=== PATIENT | female | born 1945 | race Caucasian/White ===

== ENCOUNTER 2017-06-11 11:36 | Emergency (ER) | payer BC, OTHER ==
[~2017-06-11] VITALS: Ht 165.1 cm; Wt 58.5 kg
[2017-06-11 11:46] VITALS: BP_SYST 105
[2017-06-11 12:41] VITALS: BP_SYST 105
== END 2017-06-11 12:36 | disposition home or self-care (01) ==
LOC: SED 11:36
DX: R10.84 Generalized abdominal pain (principal); J45.909 Unspecified asthma, uncomplicated
CPT/HCPCS: 99283

== ENCOUNTER 2017-06-22 07:34 | Inpatient (IN) | payer OTHER, BC ==
[~2017-06-22] VITALS: Ht 165.1 cm; Wt 57.6 kg
[2017-06-22 07:34] VITALS: BP_SYST 144
[2017-06-22] MEDS ORDERED: NACL 0.9% 1,000 ML IV ONE (07:48)
[2017-06-22] MEDS ORDERED: IPRATROPIUM BROM 0.5 MG/2.5 ML VIAL.NEB (ATROVENT) INH ONE (07:55)
[2017-06-22] MEDS ORDERED: ALBUTEROL SULFATE 0.083% 2.5 MG/3 ML VIAL.NEB INH ONE (07:55)
[2017-06-22] MEDS ORDERED: ALBUTEROL SULFATE 0.083% 2.5 MG/3 ML VIAL.NEB IH ONE ×3 (08:00→09:30)
[2017-06-22] MEDS ORDERED: MAGNESIUM SULFATE 50 ML IV ONE (08:00)
[2017-06-22] MEDS ORDERED: methylPREDNISolone SOD SUCC/PF 62.5 MG/ML VIAL IVP ONE (08:00)
[2017-06-22] MEDS ORDERED: IPRATROPIUM BROM 0.5 MG/2.5 ML VIAL.NEB (ATROVENT) IH ONE ×3 (08:00→09:30)
[2017-06-22 08:07] LABS: BASOPHILS # (AUTO) 0.2 K/uL (0.0-0.2); BASOPHILS % (AUTO) 1.8 % (0.0-2.0); EOSINOPHILS # (AUTO) 0.1 K/uL (0.0-0.4); EOSINOPHILS % (AUTO) 0.6 % (0.0-4.0); HEMATOCRIT 34.4 % (36-48); HEMOGLOBIN 11.7 g/dL (12.0-16.0); LYMPHOCYTES # (AUTO) 0.5 K/uL (1.0-5.5); LYMPHOCYTES % (AUTO) 5.3 % (20.5-51.5); MEAN CORPUSCULAR HEMOGLOBIN 29 pg (27-31); MEAN CORPUSCULAR HGB CONC 34 % (32-36); MEAN CORPUSCULAR VOLUME 87 fL (79.0-98.0); MONOCYTES # (AUTO) 0.6 K/uL (0.0-1.0); MONOCYTES % (AUTO) 6.7 % (1.7-9.3); NEUTROPHILS % (AUTO) 85.6 % (40.0-70.0); PLATELET COUNT (AUTO) 224 K/uL (130-430); RED BLOOD CELL COUNT(AUTO) 3.97 MIL/uL (4.2-6.2); RED CELL DISTRIBUTION WIDTH 15.4 % (9.0-15.0); WHITE BLOOD COUNT (AUTO) 9.4 K/uL (4.8-10.8)
[2017-06-22] MEDS ORDERED: ONDANSETRON HCL 4 MG/2 ML VIAL IVP ONE (08:15)
[2017-06-22] MEDS ORDERED: MORPHINE 4 MG/ML INJ. SYRINGE IVP ONE (08:15)
[2017-06-22] MEDS ORDERED: cefTRIAXone 2 GM VIAL ONE (08:23)
[2017-06-22 08:25] LABS: INR 1.1 (0.8-1.2); PROTHROMBIN TIME 11.1 SECS (9.5-12.5)
[2017-06-22 08:29] LABS: ANION GAP 7 (5-15); CALCIUM 9.3 mg/dL (8.4-11.0); CHLORIDE 100 mmol/L (98-107); CREATININE 0.59 mg/dL (0.55-1.30); GLUCOSE 122 mg/dL (70-99); POTASSIUM 3.8 mmol/L (3.5-5.1); SODIUM SERUM 134 mmol/L (136-145); UREA NITROGEN, BLOOD 9 mg/dL (8-21)
[2017-06-22 08:30] LABS: ALANINE AMINOTRANSFERASE 38 U/L (12-78); ALBUMIN 3.1 g/dL (3.4-4.8); AMYLASE 13 U/L (0-100); ASPARTATE AMINOTRANSFERASE 42 U/L (10-37); LIPASE 59 U/L (73-393); TOTAL BILIRUBIN 1.2 mg/dL (0.0-1.0)
[2017-06-22] MEDS ORDERED: ALBMDI INH (08:50)
[2017-06-22] MEDS ORDERED: [UNRECOGNIZED DRUG - OTHER] INH (08:50)
[2017-06-22 10:54] VITALS: BP_SYST 150
[2017-06-22] MEDS ORDERED: FUROSEMIDE 20 MG/2 ML VIAL IVP ONE (12:15)
[2017-06-22 12:25] VITALS: BP_SYST 150
[2017-06-22] MEDS: IPRATROPIUM BROM 0.5 MG/2.5 ML VIAL.NEB (ATROVENT) INH SCH ×2 (13:26→19:39)
[2017-06-22] MEDS: ALBUTEROL SULFATE 0.083% 2.5 MG/3 ML VIAL.NEB INH SCH ×2 (13:26→19:39)
[2017-06-22 13:28] VITALS: BP_SYST 150
[2017-06-22] MEDS: PIPERACILLIN/TAZO 3.375/DEX-IS 50 ML IV SCH ×2 (13:59→17:16)
[2017-06-22 16:26] VITALS: BP_SYST 136
[2017-06-22] MEDS ORDERED: ACETAMINOPHEN 325 MG TABLET PO PRN (19:00)
[2017-06-22 19:59] VITALS: BP_SYST 134
[2017-06-23 00:03] VITALS: BP_SYST 136
[2017-06-23] MEDS: PIPERACILLIN/TAZO 3.375/DEX-IS 50 ML IV SCH ×5 (00:08→23:44)
[2017-06-23] MEDS: IPRATROPIUM BROM 0.5 MG/2.5 ML VIAL.NEB (ATROVENT) INH SCH ×4 (01:22→19:31)
[2017-06-23] MEDS: ALBUTEROL SULFATE 0.083% 2.5 MG/3 ML VIAL.NEB INH SCH ×4 (01:22→19:31)
[2017-06-23 07:01] LABS: BASOPHILS % (AUTO) 0.4 % (0.0-2.0); HEMATOCRIT 32.7 % (36-48); LYMPHOCYTES # (AUTO) 0.5 K/uL (1.0-5.5); MEAN CORPUSCULAR HEMOGLOBIN 30 pg (27-31); MEAN CORPUSCULAR HGB CONC 34 % (32-36); MEAN CORPUSCULAR VOLUME 87 fL (79.0-98.0); MONOCYTES # (AUTO) 0.9 K/uL (0.0-1.0); MONOCYTES % (AUTO) 8.6 % (1.7-9.3); NEUTROPHILS # (AUTO) 8.8 K/uL (1.8-7.7); PLATELET COUNT (AUTO) 195 K/uL (130-430); RED BLOOD CELL COUNT(AUTO) 3.74 MIL/uL (4.2-6.2); RED CELL DISTRIBUTION WIDTH 15.1 % (9.0-15.0); WHITE BLOOD COUNT (AUTO) 10.2 K/uL (4.8-10.8)
[2017-06-23 08:01] VITALS: BP_SYST 147
[2017-06-23 08:10] LABS: ALANINE AMINOTRANSFERASE 37 U/L (12-78); ANION GAP 7 (5-15); ASPARTATE AMINOTRANSFERASE 31 U/L (10-37); CALCIUM 9.3 mg/dL (8.4-11.0); CHLORIDE 103 mmol/L (98-107); CREATININE 0.64 mg/dL (0.55-1.30); GLUCOSE 106 mg/dL (70-99); LACTATE DEHYDROGENASE 303 U/L (81-234); POTASSIUM 3.7 mmol/L (3.5-5.1); SODIUM SERUM 137 mmol/L (136-145); TOTAL BILIRUBIN 0.8 mg/dL (0.0-1.0); UREA NITROGEN, BLOOD 11 mg/dL (8-21)
[2017-06-23] MEDS ORDERED: IOHEXOL 350 mgI/mL, 150 ML INFUS..BTL IV ONE (09:52)
[2017-06-23 11:29] VITALS: BP_SYST 109
[2017-06-23 15:06] LABS: APPEARANCE,SPUN,BODY FLUID CLEAR (CLEAR); BF APPEARANCE UNSPUN CLEAR (CLEAR); BODY FLUID COLOR YELLOW (LT YELLOW); BODY FLUID SOURCE/ TYPE PLEURAL; BODY FLUID TOTAL VOLUME 1000 mL; SOURCE/TYPE ,BODY FLUID THORACENTESIS
[2017-06-23 15:07] LABS: RBC, BODY FLUID 40 /uL; WBC, BODY FLUID 134 /uL
[2017-06-23 15:16] LABS: NEUTROPHIL, BODY FLUID 62 %
[2017-06-23 15:17] LABS: MONOCYTES,BODY FLUID 38 %
[2017-06-23 15:29] VITALS: BP_SYST 123
[2017-06-23] MEDS: ALBUTEROL SULFATE 0.083% 2.5 MG/3 ML VIAL.NEB INH PRN (16:47)
[2017-06-23] MEDS: IPRATROPIUM BROM 0.5 MG/2.5 ML VIAL.NEB (ATROVENT) INH PRN (16:47)
[2017-06-23 19:43] LABS: BODY FLUID GLUCOSE 125 mg/dL
[2017-06-23 20:00] VITALS: BP_SYST 130
[2017-06-24 00:09] VITALS: BP_SYST 117
[2017-06-24] MEDS: ALBUTEROL SULFATE 0.083% 2.5 MG/3 ML VIAL.NEB INH SCH ×4 (00:47→20:04)
[2017-06-24] MEDS: IPRATROPIUM BROM 0.5 MG/2.5 ML VIAL.NEB (ATROVENT) INH SCH ×4 (00:47→20:04)
[2017-06-24] MEDS: PIPERACILLIN/TAZO 3.375/DEX-IS 50 ML IV SCH ×3 (05:11→17:33)
[2017-06-24] MEDS ORDERED: *LOVENOX 1MG/KG Q12H/PHARMACY XX ONE (08:15)
[2017-06-24 09:13] VITALS: BP_SYST 136
[2017-06-24] MEDS: ENOXAPARIN SODIUM 80 MG/0.8 ML SYRINGE SUBCUT SCH (09:20)
[2017-06-24 11:27] VITALS: BP_SYST 111
[2017-06-24 15:34] VITALS: BP_SYST 110
[2017-06-24] MEDS: IPRATROPIUM BROM 0.5 MG/2.5 ML VIAL.NEB (ATROVENT) INH PRN ×2 (15:51→23:38)
[2017-06-24] MEDS: ALBUTEROL SULFATE 0.083% 2.5 MG/3 ML VIAL.NEB INH PRN ×2 (15:51→23:37)
[2017-06-24 20:00] VITALS: BP_SYST 131
[2017-06-25 00:23] VITALS: BP_SYST 111
[2017-06-25] MEDS: PIPERACILLIN/TAZO 3.375/DEX-IS 50 ML IV SCH ×5 (00:27→23:34)
[2017-06-25] MEDS: IPRATROPIUM BROM 0.5 MG/2.5 ML VIAL.NEB (ATROVENT) INH SCH ×4 (01:36→19:44)
[2017-06-25] MEDS: ALBUTEROL SULFATE 0.083% 2.5 MG/3 ML VIAL.NEB INH SCH ×4 (01:37→19:44)
[2017-06-25] MEDS: ENOXAPARIN SODIUM 80 MG/0.8 ML SYRINGE SUBCUT SCH (08:31)
[2017-06-25 08:39] VITALS: BP_SYST 111
[2017-06-25 09:47] VITALS: BP_SYST 121
[2017-06-25] MEDS ORDERED: FUROSEMIDE 20 MG/2 ML VIAL IVP ONE (10:15)
[2017-06-25 11:26] VITALS: BP_SYST 143
[2017-06-25 15:55] VITALS: BP_SYST 115
[2017-06-25] MEDS: ALBUTEROL SULFATE 0.083% 2.5 MG/3 ML VIAL.NEB INH PRN (17:07)
[2017-06-25] MEDS: IPRATROPIUM BROM 0.5 MG/2.5 ML VIAL.NEB (ATROVENT) INH PRN (17:07)
[2017-06-25 20:20] VITALS: BP_SYST 134
[2017-06-26 00:17] VITALS: BP_SYST 120
[2017-06-26] MEDS: IPRATROPIUM BROM 0.5 MG/2.5 ML VIAL.NEB (ATROVENT) INH SCH ×4 (01:07→19:32)
[2017-06-26] MEDS: ALBUTEROL SULFATE 0.083% 2.5 MG/3 ML VIAL.NEB INH SCH ×4 (01:07→19:32)
[2017-06-26] MEDS: PIPERACILLIN/TAZO 3.375/DEX-IS 50 ML IV SCH (05:34)
[2017-06-26] MEDS ORDERED: metroNIDAZOLE 500 MG TABLET PO ONE (09:15)
[2017-06-26] MEDS: ENOXAPARIN SODIUM 80 MG/0.8 ML SYRINGE SUBCUT SCH (09:29)
[2017-06-26 12:21] VITALS: BP_SYST 105
[2017-06-26] MEDS: metroNIDAZOLE 500 MG TABLET PO SCH ×2 (14:36→21:39)
[2017-06-26] MEDS: ALBUTEROL SULFATE 0.083% 2.5 MG/3 ML VIAL.NEB INH PRN (15:39)
[2017-06-26] MEDS: IPRATROPIUM BROM 0.5 MG/2.5 ML VIAL.NEB (ATROVENT) INH PRN (15:39)
[2017-06-26 15:59] VITALS: BP_SYST 117
[2017-06-26] MEDS: LOPERAMIDE HCL 2 MG CAPSULE PO PRN (18:42)
[2017-06-26 19:40] VITALS: BP_SYST 119
[2017-06-27 00:32] VITALS: BP_SYST 104
[2017-06-27] MEDS: ALBUTEROL SULFATE 0.083% 2.5 MG/3 ML VIAL.NEB INH SCH ×4 (01:08→19:54)
[2017-06-27] MEDS: IPRATROPIUM BROM 0.5 MG/2.5 ML VIAL.NEB (ATROVENT) INH SCH ×4 (01:08→19:54)
[2017-06-27] MEDS: metroNIDAZOLE 500 MG TABLET PO SCH ×3 (05:54→21:15)
[2017-06-27 08:00] VITALS: BP_SYST 117
[2017-06-27] MEDS ORDERED: GADOPENTETATE DIMEGLUMINE 15 ML VIAL IV ONE (08:47)
[2017-06-27] MEDS: ENOXAPARIN SODIUM 80 MG/0.8 ML SYRINGE SUBCUT SCH (09:00)
[2017-06-27] MEDS ORDERED: LIDOCAINE 2% JELLY UROJECT 10 ML MM ONE ×2 (10:06→14:26)
[2017-06-27] MEDS ORDERED: LIDOCAINE 1%, 20 ML MDV 80 ML ONE (10:07)
[2017-06-27 12:43] VITALS: BP_SYST 132
[2017-06-27] MEDS: MIDAZOLAM HCL 5 MG/5 ML VIAL ONE ×2 (14:18→14:20)
[2017-06-27] MEDS: fentaNYL CITRATE/PF 100 MCG/2 ML AMP ONE ×3 (14:18→14:27)
[2017-06-27 17:54] VITALS: BP_SYST 126
[2017-06-27 20:00] VITALS: BP_SYST 115
[2017-06-28] VITALS (7 sets, daily range): BP systolic 103–118
[2017-06-28] MEDS: IPRATROPIUM BROM 0.5 MG/2.5 ML VIAL.NEB (ATROVENT) INH SCH ×4 (00:45→19:34)
[2017-06-28] MEDS: ALBUTEROL SULFATE 0.083% 2.5 MG/3 ML VIAL.NEB INH SCH ×4 (00:45→19:34)
[2017-06-28] MEDS: metroNIDAZOLE 500 MG TABLET PO SCH ×3 (06:38→21:06)
[2017-06-28] MEDS: LOPERAMIDE HCL 2 MG CAPSULE PO PRN (07:40)
[2017-06-28] MEDS: ENOXAPARIN SODIUM 80 MG/0.8 ML SYRINGE SUBCUT SCH (08:39)
[2017-06-28] MEDS: ALBUTEROL SULFATE 0.083% 2.5 MG/3 ML VIAL.NEB INH PRN (16:46)
[2017-06-28] MEDS: IPRATROPIUM BROM 0.5 MG/2.5 ML VIAL.NEB (ATROVENT) INH PRN (16:47)
[2017-06-29] MEDS: IPRATROPIUM BROM 0.5 MG/2.5 ML VIAL.NEB (ATROVENT) INH SCH ×3 (00:32→19:24)
[2017-06-29] MEDS: ALBUTEROL SULFATE 0.083% 2.5 MG/3 ML VIAL.NEB INH SCH ×3 (00:32→19:24)
[2017-06-29] MEDS: metroNIDAZOLE 500 MG TABLET PO SCH ×3 (06:27→21:29)
[2017-06-29 07:45] VITALS: BP_SYST 112
[2017-06-29] MEDS ORDERED: FUROSEMIDE 20 MG/2 ML VIAL IVP ONE (08:30)
[2017-06-29] MEDS: ENOXAPARIN SODIUM 80 MG/0.8 ML SYRINGE SUBCUT SCH (09:16)
[2017-06-29 11:44] VITALS: BP_SYST 125
[2017-06-29 16:05] VITALS: BP_SYST 100
[2017-06-29 20:00] VITALS: BP_SYST 111
[2017-06-29 22:50] VITALS: BP_SYST 105
[2017-06-30] MEDS: IPRATROPIUM BROM 0.5 MG/2.5 ML VIAL.NEB (ATROVENT) INH SCH ×3 (00:35→13:47)
[2017-06-30] MEDS: ALBUTEROL SULFATE 0.083% 2.5 MG/3 ML VIAL.NEB INH SCH ×3 (00:35→13:47)
[2017-06-30] MEDS: metroNIDAZOLE 500 MG TABLET PO SCH ×2 (05:31→15:13)
[2017-06-30 07:35] LABS: ALANINE AMINOTRANSFERASE 34 U/L (12-78); ALBUMIN 2.6 g/dL (3.4-4.8); ANION GAP 4 (5-15); ASPARTATE AMINOTRANSFERASE 30 U/L (10-37); CALCIUM 9.2 mg/dL (8.4-11.0); CHLORIDE 102 mmol/L (98-107); CREATININE 1.93 mg/dL (0.55-1.30); GLUCOSE 113 mg/dL (70-99); POTASSIUM 3.2 mmol/L (3.5-5.1); SODIUM SERUM 137 mmol/L (136-145); TOTAL BILIRUBIN 0.7 mg/dL (0.0-1.0); UREA NITROGEN, BLOOD 14 mg/dL (8-21)
[2017-06-30 08:00] VITALS: BP_SYST 111
[2017-06-30] MEDS: ENOXAPARIN SODIUM 80 MG/0.8 ML SYRINGE SUBCUT SCH (09:12)
[2017-06-30] MEDS ORDERED: POTASSIUM CHLORIDE 20 MEQ TAB.PRT.SR PO ONE (09:30)
[2017-06-30] MEDS ORDERED: NACL 0.9% 1,000 ML IV SCH (11:00)
[2017-06-30 12:00] VITALS: BP_SYST 111
[2017-06-30] MEDS ORDERED: LIDOCAINE 1%, 20 ML MDV 20 ML ONE (13:25)
[2017-06-30] MEDS ORDERED: LIDOCAINE 1% 10 MG/ML, 20 ML MDV INJ ONE (13:30)
[2017-06-30 14:13] VITALS: BP_SYST 118
[2017-06-30 16:09] VITALS: BP_SYST 111
== END 2017-06-30 16:30 | disposition short-term general hospital (02) | DRG 186 ==
LOC: SED 07:34 → STU 10:35
PROVIDERS: ADMIT Internal Medicine Hospice and Palliative Medicine; ATTEND Internal Medicine Hospice and Palliative Medicine
PROC: 0W994ZX Drainage of Right Pleural Cavity, Percutaneous Endoscopic Approach, Diagnostic (ICD-10-PCS; 2017-06-23)
PROC: 0W994ZX Drainage of Right Pleural Cavity, Percutaneous Endoscopic Approach, Diagnostic (ICD-10-PCS; 2017-06-25)
PROC: 0BC98ZZ Extirpation of Matter from Lingula Bronchus, Via Natural or Artificial Opening Endoscopic (ICD-10-PCS; 2017-06-27)
PROC: 0BC48ZZ Extirpation of Matter from Right Upper Lobe Bronchus, Via Natural or Artificial Opening Endoscopic (ICD-10-PCS; 2017-06-27)
PROC: 0BC88ZZ Extirpation of Matter from Left Upper Lobe Bronchus, Via Natural or Artificial Opening Endoscopic (ICD-10-PCS; 2017-06-27)
PROC: 0BC58ZZ Extirpation of Matter from Right Middle Lobe Bronchus, Via Natural or Artificial Opening Endoscopic (ICD-10-PCS; 2017-06-27)
PROC: 0BC38ZZ Extirpation of Matter from Right Main Bronchus, Via Natural or Artificial Opening Endoscopic (ICD-10-PCS; 2017-06-27)
PROC: 0BC78ZZ Extirpation of Matter from Left Main Bronchus, Via Natural or Artificial Opening Endoscopic (ICD-10-PCS; 2017-06-27)
PROC: 0BC68ZZ Extirpation of Matter from Right Lower Lobe Bronchus, Via Natural or Artificial Opening Endoscopic (ICD-10-PCS; 2017-06-27)
PROC: 0BCB8ZZ Extirpation of Matter from Left Lower Lobe Bronchus, Via Natural or Artificial Opening Endoscopic (ICD-10-PCS; 2017-06-27)
PROC: 0BC18ZZ Extirpation of Matter from Trachea, Via Natural or Artificial Opening Endoscopic (ICD-10-PCS; principal; 2017-06-27 14:00)
PROC: 0W994ZX Drainage of Right Pleural Cavity, Percutaneous Endoscopic Approach, Diagnostic (ICD-10-PCS; 2017-06-30)
DX: J90 Pleural effusion, not elsewhere classified (principal); J18.9 Pneumonia, unspecified organism; I81 Portal vein thrombosis; N17.9 Acute kidney failure, unspecified; J44.0 Chronic obstructive pulmonary disease with (acute) lower respiratory infection; J44.1 Chronic obstructive pulmonary disease with (acute) exacerbation; E87.70 Fluid overload, unspecified; T17.990A Other foreign object in respiratory tract, part unspecified in causing asphyxiation, initial encounter; X58.XXXA Exposure to other specified factors, initial encounter; F17.200 Nicotine dependence, unspecified, uncomplicated; R19.00 Intra-abdominal and pelvic swelling, mass and lump, unspecified site; R91.1 Solitary pulmonary nodule; J42 Unspecified chronic bronchitis; J45.909 Unspecified asthma, uncomplicated; Z85.07 Personal history of malignant neoplasm of pancreas; Y93.89 Activity, other specified; Y92.89 Other specified places as the place of occurrence of the external cause; Y99.8 Other external cause status
CPT/HCPCS: 31622; 32555; 36415; 36600; 71045; 71275; 80053; 82150-TC; 82550-TC; 82803-TC; 82947-TC; 83605; 83615-TC; 83690-TC; 84157-TC; 84484; 85025; 85610-TC; 85730-TC; 86301; 87040-TC; 87070-TC; 87101; 87116; 87230-TC; 88108; 89051-TC; 89060-TC; 93005; 93306; 93970; 94640; 94760; 96365; 96367; 96375; 97110-GP; 97116-GP; 97530-GP; 99285; A9579; C1729; C8902; J0696; J1650; J1940; J2001; J2250; J2270; J2405; J2543; J2930; J3010; J3475; J7030; J7060; J7613; Q9967